=== PATIENT | male | born 1990 | race Caucasian/White ===

== ENCOUNTER 2021-07-04 18:07 | Emergency (ER) | payer BC, SELFPAY ==
--- NOTE | ~2021-07-04 | CT_ITS ---
EXAMINATION: CT abdomen pelvis wo con DATE: 07/04/2021 19:11 INDICATION: Bilateral flank pain. Gross hematuria. TECHNIQUE: Computed tomography (CT) of the abdomen and pelvis was performed without intravenous contr ast. Automated exposure control and iterative reconstruction technique were employed. The dose-length product was 459.40 mGy-cm. COMPARISON: None FINDINGS: Lung bases are clear. Heart size is normal. No pericardial or pleural effusion. Diffuse hepatic steat osis with focal sparing along the gallbladder fossa. Decompressed gallbladder, spleen, pancreas and b ilateral adrenal glands are normal. 2 mm nonobstructing stone at the mid right kidney. No other uroli thiasis at either at the normal left kidney or along the bilateral ureters. No hydronephrosis. A few phleboliths in the deep pelvis. Subtle indistinctness to the serosal margin of the bladder which coul d be seen with cystitis. Prostate and seminal vesicles are unremarkable. Bowels including the appendi x are normal. No free intraperitoneal gas or fluid. No pathologically enlarged abdominal or pelvic ly mphadenopathy. Bones are unremarkable. IMPRESSION: 1. 2 mm nonobstructing right renal stone. No other urolithiasis or hydronephrosis. 2. Suspected mild cystitis. Correlate with urinalysis. 3. Diffuse hepatic steatosis. Reviewed, dictated and finalized at location A. [facility] [employer] IMPRESSION: 1. 2 mm nonobstructing right renal stone. No other urolithiasis or hydronephros is. 2. Suspected mild cystitis. Correlate with urinalysis. 3. Diffuse hepatic steatosis.
[2021-07-04 18:21] VITALS: BP 153/83; PULSE 82; RESP 20; TEMP 36.5; O2SAT 97
[2021-07-04 18:35] LABS: Add Urine Microscopic? YES; Appearance Urine Cloudy (Clear); Bilirubin Urine Negative (Negative); Blood Urine 1+ (Negative); Color Urine Yellow (Yellow); Glucose Urine UA Negative (Negative); Ketones Urine Negative (Negative); Leukocyte Esterase Ur 1+ LEU/UL (Negative); Nitrate Urine Negative (Negative); Protein Urine Trace (Negative); Specific Grav Ur 1.025 (1.010-1.020)
--- NOTE | 2021-07-04 18:44 | ED.MALEGU ---
HPI - Male Genitourinary General Chief complaint: Urogenital-Male Stated complaint: blood in urine/flank pain Source: patient Mode of arrival: ambulatory Limitations: no limitations History of Present Illness HPI Narrative: Patient has been having bilateral flank pain with some episode of hematuria and dysuria, pain level is some mild currently, with no fever chills no nausea vomiting no chest pain no shortness of breath no history of kidney stones. Onset (ago): hour(s) Duration: intermittent and improved Related Data Allergies Allergy/AdvReac Type Severity Reaction Status Date / Time Penicillins Allergy Mild Rash Verified 04/02/21 11:35 Review of Systems Review of Systems: All systems reviewed & are unremarkable except as noted in HPI and below [facility] Past Medical History Medical History Patient denies medical problems Exam Const: General: no acute distress and alert HENMT: Head: normal to inspection Eyes: Conjunctivae: conjunctivae normal Pupils: Equal, round and reactive pupils present Neck: Neck: normal visual inspection, no lymphadenopathy and no meningeal signs Chest: Chest palpation & inspection: normal inspection of the chest Resp: Effort & Inspection: normal respiratory effort Auscultation: clear to auscultation bilaterally Cardio: Rate: regular rate Rhythm: regular rhythm GI: GI Palp: Yes Soft to palpation Percussion: Yes normal to percussion : Testes: Testes normal Urinary Catheter: Urinary Catheter: patent and draining Back/Spine/Pelvis: Back: CVA tenderness Skin: General skin exam: normal color Rashes: no rashes Neuro: General: patient oriented x3 and moves all extremities Extrem: General: normal to inspection and no pedal edema Psych: Mental Status: mental status grossly normal Affect: normal affect Course Course Emergency Course: patient declined pain medication, labs and urine reviewed with patient as well as CT scan. CT scan shows a 2mm stone that is nonobstructing will start IV fluids and give a dose of Macrobid and IV Toradol. Vital Signs Vital signs: Vital Signs Temperature 36.5 C 07/04/21 18:21 Pulse Rate 82 07/04/21 18:21 Respiratory Rate 20 07/04/21 18:21 Blood Pressure 153/83 H 07/04/21 18:21 Pulse Oximetry 97 07/04/21 18:21 Temperature 36.5 C 07/04/21 18:21 Pulse Rate 82 03/12/22 18:21 Respiratory Rate 20 07/04/21 18:21 Blood Pressure 153/83 H 07/04/21 18:21 Pulse Oximetry 97 07/04/21 18:21 MDM - Male Genitourinary Lab Data Labs: Lab Results 07/04/21 Range/Units 18:26 Urine Color Pending Urine Appearance Pending Urine pH Pending Ur Specific [place] Pending Urine Protein Pending Urine Glucose (UA) Pending Urine Ketones Pending Ur Blood (Man) Pending Urine Nitrate Pending Urine Bilirubin Pending Urine Urobilinogen Pending Leukocyte Esterase Rfl Pending Critical Care Time Critical Care Time Critical Care Time: No Discharge Plan Discharge Clinical Impression: Acute UTI Urolithiasis Qualifiers: Urinary calculus location: ureter Qualified Code(s): N20.1 - Calculus of ureter Patient Disposition: Home, Self-Care Condition: Stable Instructions: Antibiotic Form, Urinary Tract Infection in Men (ED), Ureteral Stones (ED) Additional Instructions: take medicine as prescribed and follow-up primary care physician within 1 to 2 weeks further evaluation and treatment. Prescriptions: New tamsulosin [Flomax] 0.4 mg capsule 0.4 mg PO DAILY Qty: 7 RF: 0 nitrofurantoin monohyd/m-cryst [Macrobid] 100 mg capsule 100 mg PO Q12H 7 Days Qty: 14 RF: 0 tramadol [Ultram] 50 mg tablet 50 mg PO Q6H PRN (Reason: pain) Qty: 14 RF: 0 Follow-up/Referrals: UNKNOWN,DOCTOR [Primary Care Provider] - Time of Disposition: 19:38
[2021-07-04 18:45] LABS: Bacteria Urine 3+ /hpf; WBC Clumps Urine Present /hpf
--- NOTE | 2021-07-04 18:56 | PC.NURSE ---
report to SHAWNA Wiseman
[2021-07-04 19:05] LABS: Basophils Absolute Auto 0.06 K/mm3 (0.00-0.10); Basophils Percent Auto 0.5 % (0.0-1.0); Eosinophils Absolute Auto 0.13 K/mm3 (0.02-0.50); Eosinophils Percent Auto 1.1 % (1.0-6.0); Hematocrit 48.5 % (40.0-54.0); Immature Granulocyte Absolute 0.05 K/mm3 (0.00-0.00); Immature Granulocyte Percent A 0.4 % (0.0-0.0); Lymphocytes Absolute Auto 2.94 K/mm3 (1.10-4.50); Lymphocytes Percent Auto 24.9 % (18.0-42.0); Mean Corpuscular Hemoglobin 30.2 pg (27.0-31.0); Mean Corpuscular Volume 91.5 fL (78.0-102.0); Mean Platelet Volume 8.9 fl (8.7-11.0); Monocytes Absolute Auto 1.06 K/mm3 (0.10-0.90); Neutrophils Absolute Auto 7.6 K/mm3 (1.7-7.2); Neutrophils Percent Auto 64.1 % (50.0-70.0); Platelet Count Result 337 K/mm3 (150-420); Red Cell Distribution Width 12.5 % (11.6-14.4); White Blood Count 11.8 K/mm3 (4.8-10.8)
[2021-07-04 19:18] LABS: Alanine Aminotransferase 34 U/L (16-63); Albumin Level 3.9 g/dL (3.4-5.0); Alkaline Phosphatase 45 U/L (46-116); Anion Gap 10 mmol/L (8-16); Aspartate Amino Transferase 19 U/L (15-37); Bilirubin,Total 0.3 mg/dL (0.00-1.00); Blood Urea Nitrogen 12 mg/dL (7-18); Calcium 8.4 mg/dL (8.5-10.1); Carbon Dioxide 27 mmol/L (21-32); Chloride 103 mmol/L (98-108); Estimated CRCL calculation 85 ml/min; Estimated Glomerular Filt Rate > 60; Glucose 112 mg/dL (70-99); Osmolality Calculated 290 mOsm/kg (285-295); Potassium 3.8 mmol/L (3.5-5.1); Sodium 140 mmol/L (136-145); Total Protein 7.3 g/dL (6.4-8.2)
[2021-07-04] MEDS: SODIUM CHLORIDE 0.9% IV 500 ML 999 ML IV CONT (20:00)
[2021-07-04] MEDS: KETOROLAC 30 MG/ML VIAL (*BKC) IV PUSH (20:00)
[2021-07-04] MEDS: NITROFURANTOIN MONOHYD MACROCR 100 MG CAP PO (20:02)
[2021-07-04 20:41] VITALS: BP 146/84; PULSE 82; RESP 16; O2SAT 97
== END 2021-07-04 20:46 | disposition home or self-care (01) ==
PROVIDERS: Emergency Provider Emergency Medicine
DX: N39.0 Urinary tract infection, site not specified (principal); N20.1 Calculus of ureter
CPT/HCPCS: 36415; 74176; 80053; 81001; 85025; 87077; 87086; 87088; 87186; 96361; 96374; 99284; A9270; J1885; J7040